=== PATIENT | male | born 1980 | race Hispanic/Latino ===

== ENCOUNTER 2018-11-09 21:10 | Emergency (ER) | payer OTHER ==
[~2018-11-09] VITALS: Ht 167.6 cm; Wt 110.7 kg
[2018-11-09] MEDS ORDERED: LIDOCAINE HCL 1% LOCAL INJ 20 ML VIAL ONE (21:25)
== END 2018-11-09 22:18 | disposition home or self-care (01) ==
LOC: FSED 21:10
DX: S61.412A Laceration without foreign body of left hand, initial encounter (principal); W26.0XXA Contact with knife, initial encounter; Y92.008 Other place in unspecified non-institutional (private) residence as the place of occurrence of the external cause
CPT/HCPCS: 12001; 99283; J2001

== ENCOUNTER 2018-12-05 15:33 | Emergency (ER) | payer OTHER ==
[~2018-12-05] VITALS: Ht 167.6 cm; Wt 112.1 kg
--- OUTSIDE RECORDS SUMMARY | 2018-12-05 15:35 | XMS REPORT ---
Author Author [facility] Address Unknown Phone Unavailable Care Team Providers Care Car Detailer Name Role Phone Unavailable Unavailable Problems This patient has no known problems. Allergies, Adverse Reactions, Alerts This patient has no known allergies or adverse reactions. Medications This patient has no known medications. Encounters Start Date/Time End Date/Time Encounter Type Admission Type Attending [facility] Care Facility Care Department Encounter ID 2018-11-16 03:42:00 2018-11-16 03:42:00 Emergency E [facility]SE [id number]
== END 2018-12-05 16:04 | disposition home or self-care (01) ==
LOC: FSED 15:33
DX: Z48.02 Encounter for removal of sutures (principal); K21.9 Gastro-esophageal reflux disease without esophagitis
CPT/HCPCS: 99282; S0630

== ENCOUNTER 2018-12-24 18:42 | Emergency (ER) | payer OTHER ==
[~2018-12-24] VITALS: Ht 167.6 cm; Wt 112.0 kg
[2018-12-24] MEDS ORDERED: ONDANSETRON HCL INJ 2MG/ML 2ML 2 MG/ML VIAL IV NR (19:15)
[2018-12-24] MEDS ORDERED: SODIUM CHLORIDE 0.9% 1000ML 1,000 ML IV SCH (19:15)
[2018-12-24] MEDS ORDERED: FENTANYL CITRATE/PF 100MCG/2 ML INJ ONE (19:20)
[2018-12-24] MEDS ORDERED: SODIUM CHLORIDE 0.9% 1000ML 1,000 ML ONE (19:20)
[2018-12-24] MEDS ORDERED: ONDANSETRON HCL INJ 2MG/ML 2ML 2 MG/ML VIAL ONE (19:20)
[2018-12-24] MEDS ORDERED: FENTANYL CITRATE/PF 100MCG/2 ML INJ IV NR (19:30)
[2018-12-24] MEDS ORDERED: FENTANYL CITRATE/PF 100MCG/2 ML INJ IV ONE (19:45)
--- NOTE | 2018-12-24 19:50 | Diagnostic Imaging Report ---
EXAM: CT Abdomen and Pelvis WITHOUT contrast INDICATION: Abdominal pain right-sided pain COMPARISON: None. TECHNIQUE: Abdomen and pelvis were scanned utilizing a multidetector helical scanner from the lung base to the pubic symphysis without administration of IV contrast. Absence of intravenous contrast decreases sensitivity for detection of focal lesions and vascular pathology. Coronal and sagittal reformations were obtained. Routine protocol was performed. IV CONTRAST: None ORAL CONTRAST: Water COMPLICATIONS: None RADIATION DOSE: Total DLP: 816.67 mGy*cm Estimated effective dose: (DLP x 0.015 x size factor) mSv CTDIvol has been reviewed. It is below the limits set by the Radiation Protocol Committee (RPC). Dose modulation, iterative reconstruction, and/or weight based adjustment of the mA/kV was utilized to reduce the radiation dose to as low as reasonably achievable. FINDINGS: LINES and TUBES: None. LOWER THORAX: Unremarkable HEPATOBILIARY: Fatty infiltration of the liver with likely focal fatty sparing adjacent to the gallbladder. No biliary ductal dilation. GALLBLADDER: No radio-opaque stones or sludge. No wall thickening. SPLEEN: No splenomegaly. PANCREAS: No focal masses or ductal dilatation. ADRENALS: No adrenal nodules KIDNEYS/URETERS: No hydronephrosis. No cystic or solid mass lesions. No stones. GI TRACT: No abnormal distention, wall thickening, or evidence of bowel obstruction. Scattered diverticulosis without evidence of diverticulitis. Appendix is normal. PELVIC ORGANS/BLADDER: Unremarkable. LYMPH NODES: No lymphadenopathy. VESSELS: Unremarkable. PERITONEUM / RETROPERITONEUM: No free air or fluid. BONES: Unremarkable. SOFT TISSUES: Fat-containing periumbilical hernia. IMPRESSION: 1. Scattered diverticulosis without evidence of diverticulitis. 2. No acute CT abnormality in the abdomen or pelvis on this noncontrast enhanced CT scan. Signed by: Dr. Carlos Steinberg M.D. on 12/24/2018 7:47 PM
[2018-12-24] MEDS ORDERED: ULTRAM50 MG PO (20:04)
[2018-12-24] MEDS ORDERED: COLACE100 MG PO (20:04)
== END 2018-12-24 20:31 | disposition home or self-care (01) ==
LOC: FSED 18:42
DX: R10.31 Right lower quadrant pain (principal); R94.4 Abnormal results of kidney function studies
CPT/HCPCS: 74176; 80053; 81003; 85025; 99284; J2405; J3010; J7030

== ENCOUNTER 2019-08-24 21:10 | Emergency (ER) | payer OTHER ==
[~2019-08-24] VITALS: Ht 167.6 cm; Wt 113.4 kg
[~2019-08-24 21:10] MED LIST: COLACE100 MG PO; ULTRAM50 MG PO
--- NOTE | 2019-08-24 22:56 | Diagnostic Imaging Report ---
FINGER LT - HOPD - 3 views HISTORY: Pain. COMPARISON: None available. FINDINGS: Bones: No acute displaced fracture. Osseous alignment is within normal limits. Joints: The joint spaces are well-maintained. Soft tissues: Soft tissue laceration of the dorsal aspect of the imaged finger. IMPRESSION: No acute radiographic abnormality. Signed by: Herman Rodrigues MD on 08/24/2019 10:53 PM
[2019-08-24 23:08] VITALS: BP 121/88
[2019-08-24] MEDS ORDERED: AMOXICILLIN/CLAVULANATE K 875 MG TAB PO STA (23:08)
[2019-08-24] MEDS ORDERED: CEPHALEXIN500 MG PO (23:11)
[2019-08-24] MEDS ORDERED: TYLENOL WITH C1 EACH PO (23:13)
[2019-08-24] MEDS ORDERED: MOTRIN200 MG PO (23:14)
[2019-08-24] MEDS ORDERED: IBUPROFEN 400 MG TAB PO ONE (23:15)
[2019-08-24] MEDS ORDERED: HYDROCODONE/APAP 5MG-325MG TAB PO ONE (23:15)
[2019-08-24] MEDS ORDERED: IBUPROFEN 200 MG TAB ONE (23:17)
[2019-08-24] MEDS ORDERED: HYDROCODONE/APAP 5MG-325MG TAB ONE (23:17)
[2019-08-24] MEDS ORDERED: AMOXICILLIN/CLAVULANATE K 875 MG TAB ONE (23:21)
== END 2019-08-24 23:28 | disposition home or self-care (01) ==
LOC: FSED 21:10
DX: S61.211A Laceration without foreign body of left index finger without damage to nail, initial encounter (principal); W26.8XXA Contact with other sharp object(s), not elsewhere classified, initial encounter; Y99.0 Civilian activity done for income or pay
CPT/HCPCS: 99283

== ENCOUNTER 2019-09-12 08:11 | Emergency (ER) | payer OTHER ==
[~2019-09-12] VITALS: Ht 152.4 cm; Wt 109.4 kg
[~2019-09-12 08:11] MED LIST changes: +CEPHALEXIN500 MG PO; +MOTRIN200 MG PO; +TYLENOL WITH C1 EACH PO
--- OUTSIDE RECORDS SUMMARY | 2019-09-12 08:14 | XMS REPORT ---
Author Author [facility] t Organization [facility] t Address [address] [place] [address] Phone Unavailable Care Team Providers Care Electrical Installation Supervisor Name Role Phone NO, PCP PCP Unavailable Shanti RESENDIZ Attphys Unavailable Marielos SIDHU Attphys Unavailable Payers Payer Name Policy Type Policy Number Effective Date Expiration Date S valeria [facility] [id number] [facility] [id number] [facility] [id number] 2018 00:00:00 2019 00:0 0:00 [facility] Problems This patient has no known problems. Allergies, Adverse Reactions, Alerts This patient has no known allergies or adverse reactions. Medications Ordered Medication Name Filled Medication Name Start Date Stop Da te Current Medication? Ordering Clinician Indication Dosage Frequency Signature (SIG) Comments Components Source Docusate Sodium (Colace) 100 Mg Cap Docusate Sodium (Colace) 100 Mg Cap 2018-12-24 00:00:00 Yes Taylor Sidhu Md 100 Twice A Day as needed for Constipation [facility] Tramadol Hcl (Ultram) 50 Mg Tablet Tramadol Hcl (Ultram) 50 Mg Tablet 2018-12-24 00:00:00 Yes Taylor Sidhu Md 50 Four Times Daily as needed for Pain [facility] Procedures Procedure Date / Time Performed Performing Clinician Sourc e RPR S/N/AX/GEN/TRNK 2.5CM/< 2018-11-09 00:00:00 KESHA MORALES [facility] Encounters Start Date/Time End Date/Time [email or web address] Department Encounter ID Source 2018-12-24 18:42:00 2018-12-24 20:31:00 Departed Emergency Room [address] [facility] [id number] [facility] 2018-12-15 01:10:00 2018-12-15 01:10:00 Emergency E [facility] [id number] [facility] 2018-12-05 15:33:00 2018-12-05 16:04:[address] [facility] [id number] [facility] 2018-11-16 03:42:00 2018-11-16 03:42:00 Emergency E [facility]SE [id number] [facility]SE 2018-11-09 21:10:00 2018-11-09 22:18:[address] [facility] [id number] [facility] Results Test Description Test Time Test Comments Results Result Comments Source [facility] 2019-08-24 22:52:00 [place] [address] Patient Name: TOMMY CABRERA IV MR #: [id number] : 1980 Age/Sex: 39/M Req #: [id number] Adm Physician: Ordered by: ISAURO RESENDIZ MD Report #: [id number] Location: [facility] Room/Bed: Procedure: [id number] HOPD/FINGER LT - HOPD Exam Date: 08/24/19 Exam Time: 2229 REPORT STATUS: Signed FINGER LT - HOPD - 3 views HISTORY: Pain. COMPARISON: None available. FINDINGS: Bones: No acute displaced fracture. Osseous alignment is within normal limits. Joints: The joint spaces are well-maintained. Soft tissues: Soft tissue laceration of the dorsal aspect of the imaged finger. IMPRESSION: No acute radiographic abnormality. Signed by: Rosemarie Angeles MD on 08/24/2019 10:53 PM Dictated By: ROSEMARIE ANGELES MD 52 Transcribed By: PADMAJA on 08/24/192252 COPY TO: ISAURO RESENDIZ MD CT ABD/PEL WO CONTRAST-HOPD 2018-12-24 19:43:00 [place] [address] Patient Name: TOMMY CABRERA IV MR #: [id number] : 1980 Age/Sex: 38/M Req #: [id number] Adm Physician: Ordered by: TAYLOR SIDHU MD Report #: [id number] Location: [facility] Room/Bed: Procedure: [id number] HOPD/CT ABD/PEL WO CONTRAST-HOPD Exam Date: 12/24/18 Exam Time: 1929 REPORT STATUS: Signed EXAM: CT Abdomen and Pelvis WITHOUT contrast INDICATION: Abdominal pain right-sided pain COMPARISON: None. TECHNIQUE: Abdomen and pelvis were scanned utilizing a multidetector helical scanner from the lung base to the pubic symphysis without administration of IV contrast. Absence of intravenous contrast decreases sensitivity for detection of focal lesions and vascular pathology. Coronal and sagittal reformations were obtained. Routine protocol was performed. IV CONTRAST: None ORAL CONTRAST: Water COMPLICATIONS: None RADIATION DOSE: Total DLP: 816.67 mGy*cm Estimated effective dose: (DLP x 0.015 x size factor) mSv CTDIvol has been reviewed. It is below the limits set by the Radiation Protocol Committee (RPC). Dose modulation, iterative reconstruction, and/or weight based adjustment of the mA/kV was utilized to reduce the radiation dose to as low as reasonably achievable. FINDINGS: LINES and TUBES: None. LOWER THORAX: Unremarkable HEPATOBILIARY: Fatty infiltration of the liver with likely focal fatty sparing adjacent to the gallbladder. No biliary ductal dilation. GALLBLADDER: No radio-opaque stones or sludge. No wall thickening. SPLEEN: No splenomegaly. PANCREAS: No focal masses or ductal dilatation. ADRENALS: No adrenal nodules KIDNEYS/URETERS: No hydronephrosis. No cystic or solid mass lesions. No stones. GI TRACT: No abnormal distention, wall thickening, or evidence of bowel obstruction. Scattered diverticulosis without evidence of diverticulitis. Appendix is normal. PELVIC ORGANS/BLADDER: Unremarkable. LYMPH NODES: No lymphadenopathy. VESSELS: Unremarkable. PERITONEUM / RETROPERITONEUM: No free air or fluid. BONES: Unremarkable. SOFT TISSUES: Fat-containing periumbilical hernia. IMPRESSION: 1. Scattered diverticulosis without evidence of diverticulitis. 2. No acute CT abnormality in the abdomen or pelvis on this noncontrast enhanced CT scan. Signed by: Dr. Inocente Steinberg M.D. on 12/24/2018 7:47 PM Dictated By: INOCENTE STEINBERG MD, MD 46 Transcribed By: PADMAJA on 12/24/181946 COPY TO: TAYLOR SIDHU MD
--- NOTE | 2019-09-12 08:37 | Emergency Department Note ---
History of Present Illnes History of Present Illness Chief Complaint: Suture Removal from left index finger/ itchy whole body rash s/p taking cephalexin History of Present Illness This is a 39 year old male. HAD SUTURES PLACED ON LEFT INDEX FINGER 19 DAYS AGO. just started taking cephalexin as prescribed and 1 day ago broke out over entire body with itchy rash. no signs of infection on wound. 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 Required: No Onset (how long ago): day(s) (1) Location: whole body Quality: itchy rash Radiation: extremity (bue/ble), abdomen Severity: moderate Onset quality: gradual Duration (how long): day(s) (1) Timing of current episode: constant Progression: worsening Context: recent illness, recent surgery, recent immobilization, recent travel, trauma/injury, new medications, hx of DVT/PE, non-compliance w/ medications Relieving factors: none Exacerbating factors: medication Associated symptoms: rash Treatments prior to arrival: none Risk factors: none Past Medical/Family History Physician Review I have reviewed the patient's past medical and family history. Any updates have been documented here. Past Medical History Recent Fever: No Clinical Suspicion of Infectio: No New/Unexplained Change in Ment: No Past Medical History: None Other Medical History: UMBILICAL HERNIA Past Surgical History: Hernia Repair (umbilical) Social History Smoking Cessation: Never Smoker Counseling Performed: No Alcohol Use: None Any Illegal Drug Use: No TB Exposure/Symptoms: No Physically hurt or threatened: No Family History Family history of heart diseas: No Other Last Tetanus: UTD Any Pre-Existing Lines (PICC,: No Is patient up to date on immun: No Review of Systems Review of Systems Constitutional: no symptoms EENTM: no symptoms Cardiovascular: no symptoms Respiratory: no symptoms Genitourinary: no symptoms Musculoskeletal: no symptoms Neurological: no symptoms Psychological: no symptoms Endocrine: no symptoms Review of other systems All other systems reviewed and negative. Physical Exam Related Data Allergies: Coded Allergies: cephalexin (Verified Adverse Reaction, Unknown, hives/rash, 09/11/19) Vital signs reviewed: Yes Physical Exam CONSTITUTIONAL Constitutional: well-developed, well-nourished HENT HENT: normocephalic, atraumatic, oropharynx clear/moist, oropharynx normal, nose normal HENT L/R: left ext ear normal, right ext ear normal EYES Eyes: PERRL, conjunctivae normal, EOM normal NECK Neck: ROM normal, supple PULMONARY Pulmonary: effort normal, breath sounds normal CARDIOVASCULAR Cardiovascular: regular rhythm, heart sounds normal, intact distal pulses, capillary refill normal, normal rate GASTROINTESTINAL Abdominal: soft, nontender, bowel sounds normal GENITOURINARY SKIN Skin: warm, dry, rash (generalize body hives), other (4 sutures intact left index finger. + wound healed) MUSCULOSKELETAL Musculoskeletal: ROM normal NEUROLOGICAL Neurological: alert, oriented x 3, no gross motor or sensory deficits PSYCHOLOGICAL Psychological: mood/affect normal, judgement normal Procedures Procedures Procedure: 4 sutures removed from left index finger without complications Critical Care Time Subsequent provider I assumed direction of critical care for this patient from another provider of my specialty. Assessment & Plan Assessment & Plan Problems: (1) Encounter for removal of sutures (2) Hives Assessment & Plan rx benadryl, pepcid and prednisone Depart Disposition: HOME, SELF-assisted Meds Active Scripts Prednisone (PREDNISONE) 20 Mg Tab, 60 MG PO DAILY for 4 Days, #12 TAB take all 3 pills at once. START TOMORROW Prov:ISIDRO DOWLING 09/12/19 Famotidine (PEPCID) 20 Mg Tablet, 20 MG PO Q12H for 10 Days, #20 TAB Prov:ISIDRO DOWLING 09/12/19 Diphenhydramine Hcl (BENADRYL) 25 Mg Capsule, 50 MG PO Q6H PRN for ITCHING for 5 Days, #40 TAB Prov:ISIDRO DOWLING 09/12/19 Ibuprofen (MOTRIN) 200 Mg Tab, 800 MG PO Q8H for pain, #30 TAB 0 Refills Prov:ISAURO RESENDIZ MD 08/24/19 Acetaminophen With Codeine (TYLENOL WITH CODEINE #3 TABLET) 1 Each Tablet, 1-2 TAB PO Q6H PRN for pain, #20 TAB 0 Refills Do NOT take and drive, drink alcohol, or operate machinery Prov:ISAURO RESENDIZ MD 08/24/19 Cephalexin (CEPHALEXIN) 500 Mg Capsule, 500 MG PO TID for infection for 10 Days, #30 CAP 0 Refills Take ALL antibiotics Prov:ISAURO RESENDIZ MD 08/24/19 Docusate Sodium (COLACE) 100 Mg Cap, 100 MG PO BID PRN for constipation for 10 Days, #30 CAP Prov:TAYLOR CUEVAS MD 12/24/18 Tramadol Hcl (ULTRAM) 50 Mg Tablet, 50 MG PO QID PRN for pain for 5 Days, #20 TAB Prov:TAYLOR CUEVAS MD 12/24/18 Medications in the ED Prednisone 80 mg STK-MED ONCE .ROUTE ; Start 09/12/19 at 08:40; Stop 09/12/19 at 08:35; Status DC Famotidine 20 mg STK-MED ONCE .ROUTE ; Start 09/12/19 at 08:41; Stop 09/12/19 at 08:35; Status DC Bacitracin Zinc 1 ea STK-MED ONCE TP ; Start 09/12/19 at 08:41; Stop 09/12/19 at 08:36; Status DC ISIDRO DOWLING September 12, 2019 08:37
[2019-09-12] MEDS ORDERED: PREDNISONE 20 MG TAB ONE (08:40)
[2019-09-12] MEDS ORDERED: FAMOTIDINE 20 MG TAB ONE (08:41)
[2019-09-12] MEDS ORDERED: BACITRACIN ZINC 0.9GM TP ONE ×2 (08:41→09:00)
[2019-09-12] MEDS ORDERED: PEPCID20 MG PO (08:42)
[2019-09-12] MEDS ORDERED: PREDNISONE20 MG PO (08:42)
[2019-09-12] MEDS ORDERED: BENADRYL25 M1 PO (08:42)
[2019-09-12] MEDS ORDERED: PREDNISONE 20 MG TAB PO ONE (08:45)
[2019-09-12] MEDS ORDERED: FAMOTIDINE 20 MG TAB PO ONE (08:45)
== END 2019-09-12 09:03 | disposition home or self-care (01) ==
LOC: FSED 08:11
DX: Z48.02 Encounter for removal of sutures (principal); L50.0 Allergic urticaria; T36.1X5A Adverse effect of cephalosporins and other beta-lactam antibiotics, initial encounter
CPT/HCPCS: 99283; S0630

== ENCOUNTER 2019-11-30 19:19 | Emergency (ER) | payer SELFPAY ==
[~2019-11-30] VITALS: Ht 167.6 cm; Wt 109.8 kg
[~2019-11-30 19:19] MED LIST changes: +BENADRYL25 M1 PO; +PEPCID20 MG PO; +PREDNISONE20 MG PO
--- OUTSIDE RECORDS SUMMARY | 2019-11-30 20:42 | XMS REPORT | Continuity of Care Document ---
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 Name Role Phone NO, PCP PCP Unavailable Shanti RESENDIZ Attphys Unavailable ZEBALLOSMarielos Attphys Unavailable Payers Payer Name Policy Type Policy Number Effective Date Expiration Date Tete shaw Cigna Hmo NA 2019 00:00:00 2020 00:00 :00 [facility] Cigna Ppo [id number] 2018 00:00:00 2019 00:0 0:00 [facility] Problems Condition Name Condition Details Condition Category Status Onset Date Resolution Date Last Treatment Date Treating Clinician Comments Source Problem Condition Active [facility] Allergies, Adverse Reactions, Alerts Allergy Name Allergy Type Status Severity Reaction(s) Onset Date Inacti ve Date Treating Clinician Comments Source Cephalexin Propensity to adverse reactions Active hive s/rash 2019-09-11 00:00:00 [facility] Social History Social Habit Start Date Stop Date Quantity Comments Source Sex Ass[birth year] At 1980 00:00:00 1980 00:00:00 Male [facility] Medications Ordered Medication Name Filled Medication Name Start Date Stop Da te Current Medication? Ordering Clinician Indication Dosage Frequency Signature (SIG) Comments Components Source Diphenhydramine Hcl (Benadryl) 25 Mg CAPSULE Diphenhyd ramine Hcl (Benadryl) 25 Mg CAPSULE 2019-09-12 08:42:00 Yes 50 E very 6 Hours as needed for Itching [facility] Famotidine (Pepcid) 20 Mg TABLET Famotidine (Pepcid) 20 Mg T ABLET 2019-09-12 08:42:00 Yes 20 Every 12 Hours [facility] Prednisone Prednisone 2019-09-12 08:42:00 Yes 60 Cristina ly [facility] Ibuprofen (Motrin) 200 Mg TAB Ibuprofen (Motrin) 200 Mg TAB 2019 23:14:00 Yes 800 Every 8 Hours for Pain [facility] Acetaminophen With Codeine (Tylenol With Codeine #3 Ta blet) 1 Each TABLET Acetaminophen With Codeine (Tylenol With Codeine #3 Tablet) 1 Each TABLET 2019-08-24 23:13:00 Yes Every 6 Hours as n eeded for Pain [facility] Cephalexin Cephalexin 2019-08-24 23:11:00 Yes 500 Three Times A Day for Infection [facility] Docusate Sodium (Colace) 100 Mg CAP Docusate Sodium (Colace) 100 Mg CAP 2018-12-24 20:04:00 Yes 100 Twice A Day as nee ded for Constipation [facility] Tramadol Hcl (Ultram) 50 Mg TABLET Tramadol Hcl (Ultram) 50 Mg TABLET 2018-12-24 20:04:00 Yes 50 Four Times Daily as needed fo r Pain [facility] Vital Signs Vital Name Observation Time Observation Value Comments Source Weight 2019-09-12 08:20:00 241.25 [lb_av] [facility] BMI (Body Mass Index) 2019-09-12 08:20:00 47.1 kg/m2 [facility] Body Temperature 2019-08-24 23:08:00 98.7 [degF] [facility] Procedures Procedure Date / Time Performed Performing Clinician Sourc e RPR S/N/AX/GEN/TRNK 2.5CM/< 2019-08-24 00:00:00 [facility] Plan of Care Planned Activity Planned Date Details Comments Source Instructions Allergic Reaction [facility] Encounters Start Date/Time End Date/Time Encounter Type Admission Type Attendi [facility] Facility Care Department Encounter ID Source 2019-09-12 08:11:00 2019-09-12 09:03:00 Departed Emergency Room [facility] [id number] [facility] Patients [facility] 2019-08-24 21:10:00 2019-08-24 23:28:00 Departed Emergency Room 1 ISAURO RESENDIZ [facility] [id number] [facility] 2018-12-24 18:42:00 2018-12-24 20:31:00 Departed Emergency Room 1 TAYLOR CUEVAS [facility] [id number] [facility] 2018-12-15 01:10:00 2018-12-15 01:10:00 Emergency E [facility]SE [facility]SE [id number] [facility] 2018-12-05 15:33:00 2018-12-05 16:04:00 Departed Emergency Room [facility] [id number] [facility] 2018-11-16 03:42:00 2018-11-16 03:42:00 Emergency E MHSE [facility]SE 7507 [facility] 2018-11-09 21:10:00 2018-11-09 22:18:00 Departed Emergency Room [facility] [id number] [facility] Results Test Description Test Time Test Comments Results Result Comments Source FINGER [facility] 2019-08-24 22:52:00 [place] [address] Patient Name: TOMMY CABRERA IV MR #: [id number] : 1980 Age/Sex: 39/M Req #: [id number] Adm Physician: Ordered by: ISAURO RESENDIZ MD Report #: [id number] Location: [facility] Room/Bed: Procedure: [id number] HOPD/FINGER LT - HOPD Exam Date: 08/24/19 Exam Time: 2229 REPORT STATUS: Signed FINGER LT - HOPD - 3 views HISTORY: Pain. COMPARISON: None available. FINDINGS: Bones: No acute displaced fracture. Osseous alignment is within normal limits. Joints: The joint spaces are well-maintained. Soft tissues: Soft tissue laceration of the dorsal aspect of the imaged finger. IMPRESSION: No acute radiographic abnormality. Signed by: Herman Angeles MD on 08/24/2019 10:53 PM Dictated By: HERMAN ANGELES MD 52 Transcribed By: PADMAJA on 08/24/192252 COPY TO: ISAURO RESENDIZ MD CT ABD/PEL WO CONTRAST-HOPD 2018-12-24 19:43:00 [place] [address] Patient Name: TOMMY CABRERA IV MR #: [id number] : 1980 Age/Sex: 38/M Req #: [id number] Adm Physician: Ordered by: TAYLOR CUEVAS MD Report #: [id number] Location: [facility] Room/Bed: Procedure: [id number] HOPD/CT ABD/PEL WO CONTRAST-HOPD Exam Date: 12/24/18 [...] noncontrast enhanced CT scan. Signed by: Dr. Carlos Steinberg M.D. on 12/24/2018 7:47 PM Dictated By: CARLOS STEINBERG MD, MD 46 Transcribed By: PADMAJA on 12/24/181946 COPY TO: TAYLOR CUEVAS MD
[2019-11-30] MEDS ORDERED: BACITRACIN ZINC 15 GM OINT TOP ONE (21:30)
[2019-11-30] MEDS ORDERED: BACTRIM DS TAB1 EACH PO (21:31)
[2019-11-30] MEDS ORDERED: MOTRIN800 MG PO (21:31)
--- NOTE | 2019-11-30 21:31 | Emergency Department Note ---
History of Present Illnes History of Present Illness Chief Complaint: Laceration left ring s/p jabbing it on a boat History of Present Illness This is a 39 year old male . Historian: Patient Arrival Mode: Car History limited by: condition of the patient [employer] Required: No Onset (how long ago): hour(s) (4) Location: left ring finger Quality: sharp Radiation: Reports non-radiation Severity: moderate Onset quality: sudden Duration (how long): hour(s) (4) Progression: unchanged Chronicity: new Context: Reports trauma/injury; Denies recent illness, Denies recent surgery, Denies recent immobilization, Denies recent travel, Denies new medications, Denies hx of DVT/PE, Denies non- compliance w/ medications Relieving factors: none, movement Exacerbating factors: movement Associated symptoms: Reports denies other symptoms Treatments prior to arrival: none Past Medical/Family History Physician Review I have reviewed the patient's past medical and family history. Any updates have been documented here. Past Medical History Recent Fever: No Clinical Suspicion of Infectio: No New/Unexplained Change in Ment: No Past Medical History: None Other Medical History: UMBILICAL HERNIA Past Surgical History: None Social History Smoking Cessation: Current some day smoker Alcohol Use: None Any Illegal Drug Use: No Physically hurt or threatened: No Other Last Tetanus: UTD Any Pre-Existing Lines (PICC,: No Review of Systems Review of Systems Constitutional: Reports no symptoms EENTM: Reports no symptoms Cardiovascular: Reports no symptoms Respiratory: Reports no symptoms Gastrointestinal: Reports no symptoms Genitourinary: Reports no symptoms Musculoskeletal: Reports no symptoms Integumentary: Reports as per HPI Neurological: Reports no symptoms Psychological: Reports no symptoms Endocrine: Reports no symptoms Hematological/Lymphatic: Reports no symptoms Review of other systems: All other systems negative Physical Exam Related Data Allergies: Coded Allergies: cephalexin (Verified Adverse Reaction, Unknown, hives/rash, 09/11/19) Triage Vital Signs Vital Signs Date Time Temp Pulse Resp B/P (MAP) Pulse Ox O2 Delivery O2 Flow Rate FiO2 11/30/19 19:49 99.5 130 18 126/69 100 Room Air Vital signs reviewed: Yes Physical Exam CONSTITUTIONAL Constitutional: Present well-developed, Present well-nourished HENT HENT: Present normocephalic, Present atraumatic, Present oropharynx clear/moist, Present nose normal HENT L/R: Present left ext ear normal, Present right ext ear normal EYES Eyes: Reports PERRL, Reports conjunctivae normal NECK Neck: Present ROM normal PULMONARY Pulmonary: Present effort normal, Present breath sounds normal CARDIOVASCULAR Cardiovascular: Present regular rhythm, Present heart sounds normal, Present capillary refill normal, Present normal rate GASTROINTESTINAL Abdominal: Present soft, Present nontender, Present bowel sounds normal GENITOURINARY Genitourinary: Present exam deferred SKIN Skin: Present warm, Present other (4cm laceration posterior left ring finger/ +farom) MUSCULOSKELETAL Musculoskeletal: Present ROM normal NEUROLOGICAL Neurological: Present alert, Present oriented x 3, Present no gross motor or sensory deficits PSYCHOLOGICAL Psychological: Present mood/affect normal, Present judgement normal Procedures Laceration Laceration: Laceration 1 Site: hand (posterior left ring finger) Size (cm): 4 Description: linear Depth: simple, single layer Local anesthesia: lidocaine 1% Amount of anesthesia (mL): 3 Pre-repair: wound exposed, irrigated extensively Skin layer closed with: nylon Size (cm): 5-0 Number of sutures: 6 Technique: simple, interrupted Additional comments no complications Assessment & Plan Medical Decision Making MDM see below Assessment & Plan Final Impression: (1) Finger laceration Depart Disposition: HOME, SELF-CARE Last Vital Signs Date Time Temp Pulse Resp B/P (MAP) Pulse Ox O2 Delivery O2 Flow Rate FiO2 11/30/19 19:49 99.5 130 18 126/69 100 Room Air Home Meds Active Scripts Ibuprofen (MOTRIN) 800 Mg Tab, 800 MG PO Q6H PRN for MODERATE PAIN (4-6), #21 TAB Prov:ISIDRO DOWLING 11/30/19 Sulfamethoxazole/Trimethoprim (BACTRIM DS TABLET) 1 Each Tablet, 1 TAB PO Q12H for 10 Days, #20 TAB Prov:ISIDRO DOWLING 11/30/19 Prednisone (PREDNISONE) 20 Mg Tab, 60 MG PO DAILY for 4 Days, #12 TAB take all 3 pills at once. START TOMORROW Prov:ISIDRO DOWLING 09/12/19 Famotidine (PEPCID) 20 Mg Tablet, 20 MG PO Q12H for 10 Days, #20 TAB Prov:ISIDRO DOWLING 09/12/19 Diphenhydramine Hcl (BENADRYL) 25 Mg Capsule, 50 MG PO Q6H PRN for ITCHING for 5 Days, #40 TAB Prov:ISIDRO DOWLING 09/12/19 Ibuprofen (MOTRIN) 200 Mg Tab, 800 MG PO Q8H for pain, #30 TAB 0 Refills Prov:ISAURO RESENDIZ MD 08/24/19 Acetaminophen With Codeine (TYLENOL WITH CODEINE #3 TABLET) 1 Each Tablet, 1-2 TAB PO Q6H PRN for pain, #20 TAB 0 Refills Do NOT take and drive, drink alcohol, or operate machinery Prov:ISAURO RESENDIZ MD 08/24/19 Cephalexin (CEPHALEXIN) 500 Mg Capsule, 500 MG PO TID for infection for 10 Days, #30 CAP 0 Refills Take ALL antibiotics Prov:ISAURO RESENDIZ MD 08/24/19 Docusate Sodium (COLACE) 100 Mg Cap, 100 MG PO BID PRN for constipation for 10 Days, #30 CAP Prov:TAYLOR CUEVAS MD 12/24/18 Tramadol Hcl (ULTRAM) 50 Mg Tablet, 50 MG PO QID PRN for pain for 5 Days, #20 TAB Prov:TAYLOR CUEVAS MD 12/24/18 Medications in the ED Bacitracin Zinc 1 gm ONCE TOP ; Start 11/30/19 at 21:30; Stop 12/07/19 at 21:29; Status UNV ISIDRO DOWLING Nov 30, 2019 21:31
[2019-11-30] MEDS ORDERED: BACITRACIN ZINC 0.9GM TP ONE (21:38)
[2019-11-30 21:39] VITALS: BP 124/67
== END 2019-11-30 21:39 | disposition home or self-care (01) ==
LOC: FSED 19:49
DX: S61.215A Laceration without foreign body of left ring finger without damage to nail, initial encounter (principal); W26.9XXA Contact with unspecified sharp object(s), initial encounter; Y93.19 Activity, other involving water and watercraft; F17.210 Nicotine dependence, cigarettes, uncomplicated
CPT/HCPCS: 99283

== ENCOUNTER 2020-04-26 20:01 | Emergency (ER) | payer SELFPAY ==
[~2020-04-26] VITALS: Ht 167.6 cm; Wt 104.3 kg
[~2020-04-26 20:01] MED LIST changes: +BACTRIM DS TAB1 EACH PO; +MOTRIN800 MG PO
[2020-04-26] MEDS ORDERED: KETOROLAC TROMETHAMINE 30 MG/ML VIAL IV STA (20:17)
[2020-04-26] MEDS ORDERED: ONDANSETRON HCL INJ 2MG/ML 2ML 2 MG/ML VIAL IV ONE (20:30)
[2020-04-26] MEDS ORDERED: SODIUM CHLORIDE 0.9% 1000ML 1,000 ML IV SCH (20:30)
[2020-04-26] MEDS ORDERED: KETOROLAC TROMETHAMINE 30 MG/ML VIAL ONE (20:41)
[2020-04-26] MEDS ORDERED: SODIUM CHLORIDE 0.9% 1000ML 1,000 ML ONE (20:41)
[2020-04-26 22:15] VITALS: BP 140/74
[2020-04-26] MEDS ORDERED: LEVOFLOXACIN250 MG PO (22:15)
[2020-04-26] MEDS ORDERED: FLAGYL500 MG PO (22:15)
== END 2020-04-26 22:15 | disposition home or self-care (01) ==
LOC: FSED 20:07 → MERGE 20:07 → FSED 22:15
DX: R10.9 Unspecified abdominal pain (principal); Z88.1 Allergy status to other antibiotic agents; Z98.890 Other specified postprocedural states
CPT/HCPCS: 74176; 80053; 81003; 85025; 87040; 87071; 87205; 96374; 96376; 99284; J1885; J2405; J7030; 80048

== ENCOUNTER 2020-07-14 21:57 | Emergency (ER) | payer SELFPAY ==
[~2020-07-14] VITALS: Ht 167.6 cm; Wt 111.1 kg
[~2020-07-14 21:57] MED LIST changes: +FLAGYL500 MG PO; +LEVOFLOXACIN250 MG PO
[2020-07-14] MEDS ORDERED: PROVENTIL HFA6.7 GM INH (22:40)
[2020-07-14] MEDS ORDERED: AZITHROMYCIN250 MG PO (22:40)
[2020-07-14] MEDS ORDERED: ZYRTEC10 M3 PO (22:40)
[2020-07-14] MEDS ORDERED: PREDNISONE20 MG PO (22:40)
== END 2020-07-14 22:35 | disposition home or self-care (01) ==
LOC: FSED 22:30
DX: R05 Cough (principal); J40 Bronchitis, not specified as acute or chronic; J30.9 Allergic rhinitis, unspecified; E66.9 Obesity, unspecified
CPT/HCPCS: 99282

== ENCOUNTER 2021-07-04 17:59 | Inpatient (IN) | payer SELFPAY ==
[~2021-07-04] VITALS: Ht 167.6 cm; Wt 116.1 kg
[~2021-07-04 17:59] MED LIST changes: +AZITHROMYCIN250 MG PO; +PROVENTIL HFA6.7 GM INH; +ZYRTEC10 M3 PO
[2021-07-04] MEDS ORDERED: SODIUM CHLORIDE 0.9% 1000ML 1,000 ML IV SCH (18:45)
[2021-07-04] MEDS ORDERED: FAMOTIDINE 20 MG/2 ML VIAL IV NR (18:45)
[2021-07-04] MEDS ORDERED: SODIUM CHLORIDE 0.9% 50ML 50 ML ONE (20:08)
[2021-07-04] MEDS ORDERED: IOPAMIDOL 370 MG/ML 200 ML INFUS..BTL INJ ONE (20:09)
[2021-07-04] MEDS ORDERED: KETOROLAC TROMETHAMINE 30 MG/ML VIAL IV STA (20:34)
[2021-07-04] MEDS ORDERED: FAMOTIDINE 20 MG/2 ML VIAL IV ONE (21:00)
[2021-07-04] MEDS ORDERED: KETOROLAC TROMETHAMINE 30 MG/ML VIAL ONE (21:00)
[2021-07-04] MEDS ORDERED: SODIUM CHLORIDE 0.9% 1000ML 1,000 ML ONE (21:00)
[2021-07-04] MEDS ORDERED: SODIUM CHLORIDE FLUSH 10 ML SYR INJ PRN (22:00)
[2021-07-04] MEDS: CEFTRIAXONE 2 GM in SODIUM CHLORIDE 0.9% 100 ML IV SCH (22:17)
[2021-07-04] MEDS ORDERED: SODIUM CHLORIDE 0.9% 250ML 250 ML ONE (22:26)
[2021-07-04] MEDS ORDERED: CEFTRIAXONE 1 GM VIAL ONE (22:26)
[2021-07-04] MEDS ORDERED: ACETAMINOPHEN 325 MG TAB PO ONE (22:30)
[2021-07-05] VITALS (9 sets, daily range): BP systolic 117–124; BP diastolic 66–98
[2021-07-05] MEDS: ZOLPIDEM TARTRATE 10 MG TAB PO PRN ×2 (00:45→22:20)
[2021-07-05] MEDS: GUAIFENESIN 200 MG/10 ML UDC PO PRN ×3 (00:45→08:56)
[2021-07-05] MEDS: ACETAMINOPHEN 325 MG TAB PO PRN (05:42)
[2021-07-05 07:08] LABS: BASOPHILS # (AUTO) 0.1 (0.0-0.1); BASOPHILS % 0.4 % (0.0-1.0); EOSINOPHILS # (AUTO) 0.2 (0.0-0.4); EOSINOPHILS % 1.1 % (0.0-6.0); HEMATOCRIT 45.2 % (38.2-49.6); HEMOGLOBIN 14.9 g/dL (14.0-18.0); LYMPHOCYTES # (AUTO) 3.2 (1.0-3.2); LYMPHOCYTES % 16.6 % (18.0-39.1); MEAN CORPUSCULAR HEMOGLOBIN 29.4 pg (28-32); MEAN CORPUSCULAR VOLUME 89.2 fL (81-99); MONOCYTES # (AUTO) 1.5 (0.2-0.8); MONOCYTES % 7.5 % (4.4-11.3); NEUTROPHILS # (AUTO) 14.2 (2.1-6.9); NEUTROPHILS % 73.9 % (38.7-80.0); PLATELET COUNT 242 x10e3/uL (140-360); RED BLOOD COUNT 5.07 x10e6/uL (4.3-5.7); RED CELL DISTRIBUTION WIDTH 12.8 % (11.7-14.4)
[2021-07-05 07:34] LABS: ANION GAP 13.1 mmol/L (8-16); CALCIUM 9.7 mg/dL (8.4-10.2); CREATININE, SERUM 0.81 mg/dL (0.72-1.25); POTASSIUM 4.1 mmol/L (3.5-5.1)
[2021-07-05] MEDS: Morphine 4mg Syringe 4 MG/ML INJ IV PRN ×3 (08:56→22:20)
[2021-07-05] MEDS: BENZONATATE 100 MG CAP PO PRN (18:36)
[2021-07-05] MEDS: KETOROLAC TROMETHAMINE 30 MG/ML VIAL IV PRN (18:36)
[2021-07-05] MEDS ORDERED: CEFTRIAXONE 1 GM VIAL ONE (20:37)
[2021-07-05] MEDS: CEFTRIAXONE 2 GM in SODIUM CHLORIDE 0.9% 100 ML IV SCH (20:54)
[2021-07-05] MEDS ORDERED: SODIUM CHLORIDE 0.9% 250ML 250 ML ONE (22:14)
[2021-07-06] VITALS (9 sets, daily range): BP systolic 94–137; BP diastolic 54–81
[2021-07-06 06:09] LABS: BASOPHILS # (AUTO) 0.1 (0.0-0.1); BASOPHILS % 0.3 % (0.0-1.0); EOSINOPHILS # (AUTO) 0.2 (0.0-0.4); EOSINOPHILS % 1.2 % (0.0-6.0); HEMATOCRIT 41.1 % (38.2-49.6); HEMOGLOBIN 13.5 g/dL (14.0-18.0); LYMPHOCYTES % 15.8 % (18.0-39.1); MEAN CORPUSCULAR HEMOGLOBIN 29.8 pg (28-32); MEAN CORPUSCULAR HGB CONC 32.8 g/dL (31-35); MEAN CORPUSCULAR VOLUME 90.7 fL (81-99); MONOCYTES # (AUTO) 1.4 (0.2-0.8); MONOCYTES % 7.3 % (4.4-11.3); NEUTROPHILS # (AUTO) 14.1 (2.1-6.9); PLATELET COUNT 217 x10e3/uL (140-360); RED BLOOD COUNT 4.53 x10e6/uL (4.3-5.7); RED CELL DISTRIBUTION WIDTH 12.6 % (11.7-14.4)
[2021-07-06] MEDS: BENZONATATE 100 MG CAP PO PRN ×2 (06:51→17:34)
[2021-07-06] MEDS: GUAIFENESIN 200 MG/10 ML UDC PO PRN (06:51)
[2021-07-06] MEDS ORDERED: GADOBENATE DIMEGLUMINE 1 ML IV ONE (08:37)
[2021-07-06] MEDS ORDERED: SODIUM CHLORIDE 0.9% 50ML 50 ML ONE (08:37)
[2021-07-06] MEDS: KETOROLAC TROMETHAMINE 30 MG/ML VIAL IV PRN (10:05)
[2021-07-06] MEDS: GUAIFENESIN/CODEINE 5 ML LIQD PO PRN ×3 (10:06→20:00)
[2021-07-06] MEDS: Morphine 4mg Syringe 4 MG/ML INJ IV PRN ×3 (13:21→21:40)
[2021-07-06] MEDS: ACETAMINOPHEN 325 MG TAB PO PRN (20:00)
[2021-07-06] MEDS: AZITHROMYCIN 250 MG TAB PO SCH (21:40)
[2021-07-06] MEDS: CEFTRIAXONE 2 GM in SODIUM CHLORIDE 0.9% 100 ML IV SCH (21:40)
[2021-07-06] MEDS: ZOLPIDEM TARTRATE 10 MG TAB PO PRN (21:43)
[2021-07-07] VITALS (10 sets, daily range): BP systolic 106–125; BP diastolic 68–81
[2021-07-07] MEDS: Morphine 4mg Syringe 4 MG/ML INJ IV PRN ×2 (02:30→20:50)
[2021-07-07] MEDS: KETOROLAC TROMETHAMINE 30 MG/ML VIAL IV PRN ×3 (04:31→19:00)
[2021-07-07 06:29] LABS: HIV 1&2 AB SCREEN NON-REACTIVE (NONREACTIVE)
[2021-07-07 08:54] LABS: BASOPHILS # (AUTO) 0.1 (0.0-0.1); BASOPHILS % 0.4 % (0.0-1.0); EOSINOPHILS # (AUTO) 0.2 (0.0-0.4); EOSINOPHILS % 1.1 % (0.0-6.0); HEMATOCRIT 42.7 % (38.2-49.6); HEMOGLOBIN 13.7 g/dL (14.0-18.0); LYMPHOCYTES # (AUTO) 2.8 (1.0-3.2); LYMPHOCYTES % 15.2 % (18.0-39.1); MEAN CORPUSCULAR HEMOGLOBIN 29.5 pg (28-32); MEAN CORPUSCULAR HGB CONC 32.1 g/dL (31-35); MONOCYTES # (AUTO) 1.4 (0.2-0.8); MONOCYTES % 7.2 % (4.4-11.3); NEUTROPHILS # (AUTO) 14.1 (2.1-6.9); NEUTROPHILS % 75.7 % (38.7-80.0); PLATELET COUNT 237 x10e3/uL (140-360); RED BLOOD COUNT 4.64 x10e6/uL (4.3-5.7); RED CELL DISTRIBUTION WIDTH 12.8 % (11.7-14.4)
[2021-07-07 09:17] LABS: ALBUMIN 3.5 g/dL (3.5-5.0); ALBUMIN/GLOBULIN RATIO 0.8 (0.8-2.0); ANION GAP 12.4 mmol/L (8-16); CALCIUM 9.7 mg/dL (8.4-10.2); CREATININE, SERUM 0.74 mg/dL (0.72-1.25); POTASSIUM 4.4 mmol/L (3.5-5.1)
[2021-07-07] MEDS ORDERED: MIDAZOLAM HCL 2 MG/2 ML VIAL ONE (13:08)
[2021-07-07] MEDS ORDERED: FENTANYL CITRATE/PF 100MCG/2 ML INJ ONE ×2 (13:08→16:50)
[2021-07-07] MEDS ORDERED: ONDANSETRON HCL INJ 2MG/ML 2ML 2 MG/ML VIAL ONE (13:12)
[2021-07-07] MEDS ORDERED: SUCCINYLCHOLINE CHLORIDE 20 MG/ML 10ML VIAL ONE (13:12)
[2021-07-07] MEDS ORDERED: DEXAMETHASONE SOD PHOS INJ 4 MG/ML SDV ONE (13:12)
[2021-07-07] MEDS ORDERED: POVIDONE IODINE 0.05% 0.05 % ML PO ONE (13:12)
[2021-07-07] MEDS ORDERED: ROCURONIUM BROMIDE 10 MG/ML 5ML VIAL IV ONE (13:12)
[2021-07-07] MEDS ORDERED: LIDOCAINE HCL 2% LOCAL INJ 5 ML SDV VIAL INJ ONE (13:12)
[2021-07-07] MEDS ORDERED: SEVOFLURANE INHAL SOLN 250 ML PEN BTL ONE (13:12)
[2021-07-07] MEDS ORDERED: PROPOFOL IV EMULSION 10 MG/ML 20 ML VIAL ONE (13:12)
[2021-07-07] MEDS ORDERED: LIDOCAINE HCL 4% 50 ML BTL ONE (14:04)
[2021-07-07] MEDS ORDERED: LIDOCAINE HCL 2% JELLY 5 ML TUBE ONE (14:04)
[2021-07-07] MEDS ORDERED: GUAIFENESIN/CODEINE 5 ML LIQD PO PRN (16:15)
[2021-07-07] MEDS ORDERED: MEPERIDINE HCL INJ 25 MG/ML VIAL ONE (16:24)
[2021-07-07] MEDS ORDERED: METHYLPREDNISOLONE SOD SUCC 40 MG/ML VIAL 1ML ONE (16:54)
[2021-07-07] MEDS ORDERED: METHYLPREDNISOLONE SOD SUCC 125 MG/2ML VIAL IV ONE (17:15)
[2021-07-07] MEDS: AZITHROMYCIN 250 MG TAB PO SCH ×2 (20:50→21:04)
[2021-07-07] MEDS: CEFTRIAXONE 2 GM in SODIUM CHLORIDE 0.9% 100 ML IV SCH ×2 (20:50→21:04)
[2021-07-07] MEDS: ZOLPIDEM TARTRATE 10 MG TAB PO PRN (22:05)
[2021-07-08] VITALS: BP 108/77
[2021-07-08] MEDS: KETOROLAC TROMETHAMINE 30 MG/ML VIAL IV PRN (02:14)
[2021-07-08 04:00] VITALS: BP 112/66
[2021-07-08 06:56] LABS: BASOPHILS # (AUTO) 0.1 (0.0-0.1); BASOPHILS % 0.2 % (0.0-1.0); HEMOGLOBIN 13.5 g/dL (14.0-18.0); LYMPHOCYTES # (AUTO) 1.5 (1.0-3.2); LYMPHOCYTES % 7.2 % (18.0-39.1); MEAN CORPUSCULAR HEMOGLOBIN 29.3 pg (28-32); MEAN CORPUSCULAR HGB CONC 32.1 g/dL (31-35); MEAN CORPUSCULAR VOLUME 91.3 fL (81-99); MONOCYTES % 4.5 % (4.4-11.3); NEUTROPHILS # (AUTO) 18.6 (2.1-6.9); NEUTROPHILS % 87.3 % (38.7-80.0); PLATELET COUNT 289 x10e3/uL (140-360); RED CELL DISTRIBUTION WIDTH 12.1 % (11.7-14.4)
[2021-07-08 07:20] LABS: ALBUMIN 3.4 g/dL (3.5-5.0); ALBUMIN/GLOBULIN RATIO 0.7 (0.8-2.0); ANION GAP 13.4 mmol/L (8-16); CREATININE, SERUM 0.77 mg/dL (0.72-1.25); POTASSIUM 4.4 mmol/L (3.5-5.1)
[2021-07-08 07:50] VITALS: BP 115/72
[2021-07-08 08:00] VITALS: BP 115/72
[2021-07-08] MEDS ORDERED: PANTOPRAZOLE SOD 40 MG TABEC PO ONE (08:15)
[2021-07-08] MEDS ORDERED: tessalon perles PO (11:12)
[2021-07-08] MEDS ORDERED: AUGMENTIN 500-1 EACH PO (11:13)
[2021-07-08] MEDS ORDERED: ACETAMINOPHEN-1 EAC4 PO (11:14)
[2021-07-08] MEDS ORDERED: PROMETHAZINE-C473 ML PO (11:16)
[2021-07-09] MEDS ORDERED: PANTOPRAZOLE SOD 40 MG TABEC PO SCH (07:30)
== END 2021-07-08 11:58 | disposition home or self-care (01) | DRG 167 ==
LOC: FSED 18:24 → MERGE 21:46 → ERHOLD 21:46 → MED/SURG2 23:46
PROVIDERS: ADMIT Internal Medicine; ATTEND Internal Medicine
PROC: 0BBG8ZX Excision of Left Upper Lung Lobe, Via Natural or Artificial Opening Endoscopic, Diagnostic (ICD-10-PCS; 2021-07-07)
PROC: 0BDJ8ZX Extraction of Left Lower Lung Lobe, Via Natural or Artificial Opening Endoscopic, Diagnostic (ICD-10-PCS; principal; 2021-07-07 15:23)
DX: R91.1 Solitary pulmonary nodule (principal); Z68.41 Body mass index [BMI] 40.0-44.9, adult; J18.8 Other pneumonia, unspecified organism; K86.9 Disease of pancreas, unspecified; K76.0 Fatty (change of) liver, not elsewhere classified; E66.01 Morbid (severe) obesity due to excess calories; K43.9 Ventral hernia without obstruction or gangrene; Z20.822 Contact with and (suspected) exposure to COVID-19
CPT/HCPCS: 31622; 36415; 70450; 71045; 71250; 74177; 74183; 76870; 80048; 80053; 81003; 82553; 83605; 83735; 85025; 85379; 86301; 87040; 87102; 87116; 87205; 87206; 87335; 87390; 87536; 88112; 88300; 88305; 88312; 88342; 93005; 93976; 94799; 99284; G0433; G0435; J0330; J0456; J0696; J1100; J1885; J2001; J2175; J2250; J2270; J2405; J2920; J3010; J7030; J7050; Q9967; U0002

== ENCOUNTER 2021-11-08 00:56 | Emergency (ER) | payer MEDICAID, MEDICARE ==
[~2021-11-08] VITALS: Ht 167.6 cm; Wt 109.8 kg
[~2021-11-08 00:56] MED LIST changes: +ACETAMINOPHEN-1 EAC4 PO; +AUGMENTIN 500-1 EACH PO; +DEXAMETHASONE4 MG PO; +DOXYCYCLINE HY100 MG PO; +PROMETHAZINE-C473 ML PO; +VENTOLIN HFA18 GM INH; +tessalon perles PO
[2021-11-08] MEDS ORDERED: ALBUTEROL/IPRATROPIUM 3 ML NEB NEB ONE ×2 (01:15→01:45)
[2021-11-08] MEDS ORDERED: DEXAMETHASONE SOD PHOS 10 MG/1 ML VIAL IV ONE (01:15)
[2021-11-08 01:18] LABS: BASOPHILS # (AUTO) 0.1 (0.0-0.1); BASOPHILS % 0.4 % (0.0-1.0); EOSINOPHILS # (AUTO) 0.3 (0.0-0.4); EOSINOPHILS % 1.2 % (0.0-6.0); HEMOGLOBIN 15.3 g/dL (14.0-18.0); LYMPHOCYTES # (AUTO) 5.7 (1.0-3.2); LYMPHOCYTES % 27.1 % (18.0-39.1); MEAN CORPUSCULAR HEMOGLOBIN 31.2 pg (28-32); MEAN CORPUSCULAR VOLUME 91.6 fL (81-99); MONOCYTES % 4.5 % (4.4-11.3); NEUTROPHILS # (AUTO) 13.9 (2.1-6.9); NEUTROPHILS % 65.9 % (38.7-80.0); PLATELET COUNT 382 x10e3/uL (140-360); RED BLOOD COUNT 4.91 x10e6/uL (4.3-5.7); RED CELL DISTRIBUTION WIDTH 12.4 % (11.7-14.4)
[2021-11-08] MEDS ORDERED: LACTATED RINGER'S 1,000 ML INJ ONE ×2 (01:30→04:45)
[2021-11-08 01:35] LABS: ALANINE AMINOTRANSFERASE 49 IU/L (0-55); ALBUMIN 3.4 g/dL (3.5-5.0); ALBUMIN/GLOBULIN RATIO 0.6 (0.8-2.0); ALKALINE PHOSPHATASE 93 IU/L (40-150); BLOOD UREA NITROGEN 22 mg/dL (7-26); BUN/CREATININE RATIO 21 (6-25); CALCIUM 8.6 mg/dL (8.4-10.2); CARBON DIOXIDE 15 mmol/L (22-29); CHLORIDE 100 mmol/L (98-107); CREATININE, SERUM 1.04 mg/dL (0.72-1.25); GLUCOSE 166 mg/dL (74-118); SODIUM 136 mmol/L (136-145)
[2021-11-08 01:37] LABS: B-TYPE NATRIURETIC PEPTIDE2 < 12.0 pg/mL (0-100)
[2021-11-08] MEDS ORDERED: ALBUTEROL/IPRATROPIUM 3 ML NEB ONE (01:52)
[2021-11-08] MEDS ORDERED: IOPAMIDOL 370 MG/ML 100 ML INFUS..BTL INJ ONE (02:04)
[2021-11-08] MEDS ORDERED: ASPIRIN 325 MG TAB PO ONE (02:45)
[2021-11-08] MEDS ORDERED: ENOXAPARIN SODIUM INJ 100 MG/ML SYR SC STA (03:14)
[2021-11-08] MEDS ORDERED: Vancomycin IV 1 GM in SODIUM CHLORIDE 0.9% 250ML 250 ML IV STA (03:27)
[2021-11-08] MEDS ORDERED: PIPERACILLIN/TAZOBACTAM 4.5 GM in SODIUM CHLORIDE 0.9% 100 ML IV STA (03:27)
[2021-11-08] MEDS ORDERED: ENOXAPARIN SODIUM INJ 100 MG/ML SYR SC ONE (03:30)
[2021-11-08 03:43] LABS: ABG HCO3 25 mmol/L (22-26); ABG PCO2 36 mmHg (35-45); ABG PH 7.44 (7.35-7.45); ABG PO2 93 mmHg (80-105); ABG TCO2 26
[2021-11-08 06:08] LABS: CLARITY,URINE CLEAR (CLEAR); COLOR,URINE YELLOW (YELLOW); KETONES,URINE NEGATIVE (NEGATIVE); LEUKOCYTE ESTERASE ,URINE NEGATIVE (NEGATIVE); NITRITE,URINE NEGATIVE (NEGATIVE); PROTEIN,URINE DIPSTICK NEGATIVE (NEGATIVE)
[2021-11-08 06:09] LABS: AMPHETAMINES SCREEN,URINE NEGATIVE (NEGATIVE); BACTERIA,URINE FEW /HPF; BENZODIAZEPINES SCREEN,URINE NEGATIVE (NEGATIVE); EPITHELIAL CELLS,URINE FEW /LPF; PHENCYCLIDINE SCREEN,URINE NEGATIVE (NEGATIVE); RBC,URINE 0-5 /HPF (0-5); URINE UROBILINOGEN 0.2 mg/dL (0.2 - 1); WBC,URINE (MAN) 0-5 /HPF (0-5)
[2021-11-08 07:21] LABS: CREATINE KINASE 76 IU/L (30-200)
[2021-11-08] MEDS ORDERED: ONDANSETRON HCL INJ 2MG/ML 2ML 2 MG/ML VIAL IV STA (07:48)
[2021-11-08] MEDS ORDERED: Morphine 4mg INJECTION 4 MG/ML INJ IV ONE (08:00)
[2021-11-08 12:27] VITALS: BP 118/69
== END 2021-11-08 12:30 | disposition other institution (70) ==
LOC: ER 01:00
DX: R06.00 Dyspnea, unspecified (principal); I21.4 Non-ST elevation (NSTEMI) myocardial infarction; R91.8 Other nonspecific abnormal finding of lung field; J98.4 Other disorders of lung; K86.9 Disease of pancreas, unspecified; K43.2 Incisional hernia without obstruction or gangrene; Z20.822 Contact with and (suspected) exposure to COVID-19
CPT/HCPCS: 36415; 36600; 71260; 74177; 80053; 80307; 81001; 82550; 82553; 82805; 83605; 83880; 84484; 85025; 87040; 93005; 94640; 94799; 99284; J1100; J1650; J2270; J2405; J2543; J3370; J7050 ×2; J7121; Q9967; U0002

== ENCOUNTER 2021-12-11 22:44 | Emergency (ER) | payer MEDICAID, MEDICARE ==
[~2021-12-11] VITALS: Ht 167.6 cm; Wt 109.8 kg
[2021-12-11] MEDS ORDERED: SODIUM CHLORIDE 0.9% 1000ML 1,000 ML IV ONE (23:15)
[2021-12-11 23:30] LABS: BASOPHILS # (AUTO) 0.1 (0.0-0.1); BASOPHILS % 0.5 % (0.0-1.0); EOSINOPHILS % 0.1 % (0.0-6.0); HEMATOCRIT 38.6 % (38.2-49.6); HEMOGLOBIN 12.7 g/dL (14.0-18.0); LYMPHOCYTES # (AUTO) 2.3 (1.0-3.2); MEAN CORPUSCULAR HEMOGLOBIN 29.4 pg (28-32); MEAN CORPUSCULAR HGB CONC 32.9 g/dL (31-35); MEAN CORPUSCULAR VOLUME 89.4 fL (81-99); MONOCYTES # (AUTO) 0.2 (0.2-0.8); MONOCYTES % 0.8 % (4.4-11.3); NEUTROPHILS # (AUTO) 23.8 (2.1-6.9); NEUTROPHILS % 82.8 % (38.7-80.0); PLATELET COUNT 249 x10e3/uL (140-360); RED BLOOD COUNT 4.32 x10e6/uL (4.3-5.7); RED CELL DISTRIBUTION WIDTH 12.8 % (11.7-14.4)
[2021-12-11 23:40] LABS: INR 0.87; PROTHROMBIN TIME 12.7 seconds (11.9-14.5)
[2021-12-11 23:48] LABS: ALANINE AMINOTRANSFERASE 98 IU/L (0-55); ALBUMIN 4.4 g/dL (3.5-5.0); ALBUMIN/GLOBULIN RATIO 1.3 (0.8-2.0); ALKALINE PHOSPHATASE 81 IU/L (40-150); ANION GAP 18.2 mmol/L (8-16); BLOOD UREA NITROGEN 29 mg/dL (7-26); BUN/CREATININE RATIO 37 (6-25); CALCIUM 9.1 mg/dL (8.4-10.2); CARBON DIOXIDE 22 mmol/L (22-29); CHLORIDE 103 mmol/L (98-107); CREATINE KINASE 33 IU/L (30-200); CREATININE, SERUM 0.79 mg/dL (0.72-1.25); GLUCOSE 183 mg/dL (74-118); POTASSIUM 4.2 mmol/L (3.5-5.1); SODIUM 139 mmol/L (136-145)
[2021-12-12] MEDS ORDERED: PIPERACILLIN/TAZOBACTAM 3.375 GM VIAL ONE (00:02)
[2021-12-12 00:30] LABS: BACTERIA,URINE FEW /HPF; CLARITY,URINE CLEAR (CLEAR); COLOR,URINE YELLOW (YELLOW); EPITHELIAL CELLS,URINE RARE /LPF; KETONES,URINE NEGATIVE (NEGATIVE); LEUKOCYTE ESTERASE ,URINE NEGATIVE (NEGATIVE); NITRITE,URINE NEGATIVE (NEGATIVE); PROTEIN,URINE DIPSTICK NEGATIVE (NEGATIVE); RBC,URINE 0-5 /HPF (0-5); URINE UROBILINOGEN 0.2 mg/dL (0.2 - 1); WBC,URINE (MAN) 0-5 /HPF (0-5)
[2021-12-12] MEDS ORDERED: KETOROLAC TROMETHAMINE 30 MG/ML VIAL IV STA (01:55)
[2021-12-12] MEDS ORDERED: SODIUM CHLORIDE 0.9% 1000ML 1,000 ML IV SCH (03:45)
[2021-12-12] MEDS ORDERED: SODIUM CHLORIDE 0.9% 1000ML 1,000 ML ONE (03:59)
[2021-12-12] MEDS ORDERED: FENTANYL CITRATE/PF 100MCG/2 ML INJ IV ONE ×2 (04:15→05:45)
[2021-12-12] MEDS ORDERED: FENTANYL CITRATE/PF 100MCG/2 ML INJ ONE (04:18)
[2021-12-12 05:24] VITALS: BP 102/53
[2021-12-12] MEDS ORDERED: IOPAMIDOL 370 MG/ML 100 ML INFUS..BTL INJ ONE (06:20)
== END 2021-12-12 05:50 | disposition other institution (70) ==
LOC: ER 22:57
DX: J93.9 Pneumothorax, unspecified (principal); R91.8 Other nonspecific abnormal finding of lung field; D72.829 Elevated white blood cell count, unspecified; Z85.831 Personal history of malignant neoplasm of soft tissue; Z79.899 Other long term (current) drug therapy; Z20.822 Contact with and (suspected) exposure to COVID-19
CPT/HCPCS: 36415; 71260; 80053; 81001; 82550; 82553; 83605; 84484; 85025; 85610; 85730; 87040; 93005; 99284; C9113; J1885; J2543; J3010; J7030 ×2; Q9967; U0002

== ENCOUNTER 2022-01-14 15:15 | Emergency (ER) | payer MEDICAID, MEDICARE ==
[~2022-01-14] VITALS: Ht 167.6 cm; Wt 109.8 kg
[2022-01-14] MEDS ORDERED: KETOROLAC TROMETHAMINE 30 MG/ML VIAL IV STA (16:22)
[2022-01-14 16:57] LABS: BASOPHILS # (AUTO) 0.1 (0.0-0.1); BASOPHILS % 0.4 % (0.0-1.0); EOSINOPHILS # (AUTO) 0.1 (0.0-0.4); EOSINOPHILS % 0.7 % (0.0-6.0); HEMATOCRIT 44.5 % (38.2-49.6); HEMOGLOBIN 14.6 g/dL (14.0-18.0); LYMPHOCYTES # (AUTO) 2.4 (1.0-3.2); LYMPHOCYTES % 19.3 % (18.0-39.1); MEAN CORPUSCULAR HEMOGLOBIN 29.7 pg (28-32); MEAN CORPUSCULAR HGB CONC 32.8 g/dL (31-35); MEAN CORPUSCULAR VOLUME 90.6 fL (81-99); MONOCYTES # (AUTO) 0.8 (0.2-0.8); MONOCYTES % 6.8 % (4.4-11.3); NEUTROPHILS # (AUTO) 8.8 (2.1-6.9); NEUTROPHILS % 72.5 % (38.7-80.0); PLATELET COUNT 334 x10e3/uL (140-360); RED BLOOD COUNT 4.91 x10e6/uL (4.3-5.7); RED CELL DISTRIBUTION WIDTH 13.7 % (11.7-14.4)
[2022-01-14] MEDS: FENTANYL CITRATE/PF 100MCG/2 ML INJ IV PRN ×2 (17:00→18:57)
[2022-01-14 17:11] LABS: ALBUMIN 4.3 g/dL (3.5-5.0); ALBUMIN/GLOBULIN RATIO 1.2 (0.8-2.0); ANION GAP 19.9 mmol/L (8-16); CALCIUM 9.5 mg/dL (8.4-10.2); CREATININE, SERUM 0.75 mg/dL (0.72-1.25); POTASSIUM 3.9 mmol/L (3.5-5.1)
[2022-01-14] MEDS ORDERED: IOPAMIDOL 370 MG/ML 100 ML INFUS..BTL INJ ONE ×2 (17:35→18:58)
[2022-01-14 17:37] LABS: PHENCYCLIDINE SCREEN,URINE NEGATIVE (NEGATIVE)
[2022-01-14 17:38] LABS: AMPHETAMINES SCREEN,URINE NEGATIVE (NEGATIVE); BENZODIAZEPINES SCREEN,URINE NEGATIVE (NEGATIVE)
[2022-01-14 18:19] LABS: LIPASE 66 U/L (8-78)
[2022-01-14] MEDS ORDERED: SODIUM CHLORIDE 0.9% 100 ML ONE (18:58)
[2022-01-14] MEDS ORDERED: ONDANSETRON HCL INJ 2MG/ML 2ML 2 MG/ML VIAL IV STA (19:10)
[2022-01-14] MEDS ORDERED: Morphine 4mg INJECTION 4 MG/ML INJ IV STA (19:10)
[2022-01-14 19:50] VITALS: BP 130/75
== END 2022-01-14 19:57 | disposition home or self-care (01) ==
LOC: ER 15:18
DX: R07.89 Other chest pain (principal); R10.9 Unspecified abdominal pain; C41.9 Malignant neoplasm of bone and articular cartilage, unspecified; K86.9 Disease of pancreas, unspecified; K57.90 Diverticulosis of intestine, part unspecified, without perforation or abscess without bleeding; R16.0 Hepatomegaly, not elsewhere classified; R94.31 Abnormal electrocardiogram [ECG] [EKG]
CPT/HCPCS: 36415; 71260; 74177; 80053; 80307; 83690; 84484; 85025; 93005; 99284; J1885; J2270; J2405; J3010; J7050; Q9967

== ENCOUNTER 2022-03-11 07:57 | Emergency (ER) | payer MEDICARE ==
[~2022-03-11] VITALS: Ht 167.6 cm; Wt 109.8 kg
[2022-03-11] MEDS ORDERED: KETOROLAC TROMETHAMINE 30 MG/ML VIAL IV STA (08:10)
[2022-03-11 08:38] LABS: BASOPHILS # (AUTO) 0.1 (0.0-0.1); BASOPHILS % 0.5 % (0.0-1.0); EOSINOPHILS # (AUTO) 0.1 (0.0-0.4); EOSINOPHILS % 0.9 % (0.0-6.0); HEMATOCRIT 39.7 % (38.2-49.6); HEMOGLOBIN 12.5 g/dL (14.0-18.0); LYMPHOCYTES # (AUTO) 1.7 (1.0-3.2); LYMPHOCYTES % 17.8 % (18.0-39.1); MEAN CORPUSCULAR HEMOGLOBIN 29.8 pg (28-32); MEAN CORPUSCULAR HGB CONC 31.5 g/dL (31-35); MEAN CORPUSCULAR VOLUME 94.5 fL (81-99); MONOCYTES # (AUTO) 0.9 (0.2-0.8); MONOCYTES % 9.2 % (4.4-11.3); NEUTROPHILS # (AUTO) 6.8 (2.1-6.9); NEUTROPHILS % 71.3 % (38.7-80.0); PLATELET COUNT 277 x10e3/uL (140-360); RED CELL DISTRIBUTION WIDTH 13.7 % (11.7-14.4)
[2022-03-11] MEDS ORDERED: IOPAMIDOL 370 MG/ML 100 ML INFUS..BTL INJ ONE ×2 (08:38→08:39)
[2022-03-11 08:54] LABS: ALANINE AMINOTRANSFERASE 52 IU/L (0-55); ALKALINE PHOSPHATASE 93 IU/L (40-150); ANION GAP 15.9 mmol/L (8-16); BLOOD UREA NITROGEN 13 mg/dL (7-26); BUN/CREATININE RATIO 17 (6-25); CALCIUM 9.3 mg/dL (8.4-10.2); CARBON DIOXIDE 26 mmol/L (22-29); CHLORIDE 102 mmol/L (98-107); CREATINE KINASE 61 IU/L (30-200); CREATININE, SERUM 0.76 mg/dL (0.72-1.25); GLUCOSE 118 mg/dL (74-118); POTASSIUM 3.9 mmol/L (3.5-5.1); SODIUM 140 mmol/L (136-145)
[2022-03-11 09:19] LABS: AMPHETAMINES SCREEN,URINE NEGATIVE (NEGATIVE); BENZODIAZEPINES SCREEN,URINE NEGATIVE (NEGATIVE); PHENCYCLIDINE SCREEN,URINE NEGATIVE (NEGATIVE)
== END 2022-03-11 11:07 | disposition home or self-care (01) ==
LOC: ER 08:01
DX: R07.89 Other chest pain (principal); C25.9 Malignant neoplasm of pancreas, unspecified; E66.9 Obesity, unspecified
CPT/HCPCS: 36415; 71260; 80053; 80307; 82550; 82553; 83690; 83880; 84484; 85025; 85379; 93005; 99284; J1885; Q9967

== ENCOUNTER 2022-05-29 20:49 | Emergency (ER) | payer OTHER ==
[~2022-05-29] VITALS: Ht 167.6 cm; Wt 116.1 kg
[2022-05-29] MEDS ORDERED: KETOROLAC TROMETHAMINE 30 MG/ML VIAL IV STA (21:34)
[2022-05-29] MEDS ORDERED: KETOROLAC TROMETHAMINE 30 MG/ML VIAL ONE (21:50)
[2022-05-29 22:04] LABS: ALBUMIN 4.3 g/dL (3.5-5.0); ANION GAP 17.1 mmol/L (8-16); CALCIUM 9.8 mg/dL (8.4-10.2); CREATININE, SERUM 0.83 mg/dL (0.72-1.25); POTASSIUM 4.1 mmol/L (3.5-5.1)
[2022-05-29 22:09] LABS: BASOPHILS % 0.2 % (0.0-1.0); EOSINOPHILS % 0.1 % (0.0-6.0); HEMATOCRIT 46.6 % (38.2-49.6); HEMOGLOBIN 14.5 g/dL (14.0-18.0); LYMPHOCYTES # (AUTO) 0.8 (1.0-3.2); LYMPHOCYTES % 5.9 % (18.0-39.1); MEAN CORPUSCULAR HGB CONC 31.1 g/dL (31-35); MEAN CORPUSCULAR VOLUME 93.2 fL (81-99); MONOCYTES # (AUTO) 0.9 (0.2-0.8); MONOCYTES % 6.9 % (4.4-11.3); NEUTROPHILS # (AUTO) 11.3 (2.1-6.9); NEUTROPHILS % 86.7 % (38.7-80.0); PLATELET COUNT 254 x10e3/uL (140-360); RED CELL DISTRIBUTION WIDTH 13.1 % (11.7-14.4)
[2022-05-29 22:41] LABS: CLARITY,URINE CLOUDY (CLEAR); COLOR,URINE YELLOW (YELLOW); KETONES,URINE NEGATIVE (NEGATIVE); LEUKOCYTE ESTERASE ,URINE NEGATIVE (NEGATIVE); NITRITE,URINE NEGATIVE (NEGATIVE); PROTEIN,URINE DIPSTICK TRACE (NEGATIVE); URINE UROBILINOGEN 0.2 mg/dL (0.2 - 1)
[2022-05-29 22:43] LABS: AMPHETAMINES SCREEN,URINE NEGATIVE (NEGATIVE); BENZODIAZEPINES SCREEN,URINE NEGATIVE (NEGATIVE); PHENCYCLIDINE SCREEN,URINE NEGATIVE (NEGATIVE)
[2022-05-29 22:48] LABS: BACTERIA,URINE FEW /HPF; EPITHELIAL CELLS,URINE RARE /LPF; RBC,URINE >50 /HPF (0-5); WBC,URINE (MAN) 0-5 /HPF (0-5)
[2022-05-29] MEDS ORDERED: IOPAMIDOL 370 MG/ML 100 ML INFUS..BTL INJ ONE (22:57)
[2022-05-29] MEDS ORDERED: DICYCLOMINE HCL 20 MG/2 ML VIAL IM STA (23:08)
[2022-05-30 00:16] VITALS: BP 123/77
== END 2022-05-30 00:24 | disposition home or self-care (01) ==
LOC: ER 21:03
DX: R50.9 Fever, unspecified (principal); R10.30 Lower abdominal pain, unspecified; K76.0 Fatty (change of) liver, not elsewhere classified; Z20.822 Contact with and (suspected) exposure to COVID-19; Z85.038 Personal history of other malignant neoplasm of large intestine
CPT/HCPCS: 36415; 74177; 80053; 80307; 81001; 82550; 82553; 83605; 83690; 84484; 85025; 87040; 93005; 99284; J0500; J1885; Q9967; U0002

== ENCOUNTER 2023-05-15 22:47 | Emergency (ER) | payer SELFPAY ==
[~2023-05-15] VITALS: Ht 167.6 cm; Wt 116.1 kg
[2023-05-15] MEDS ORDERED: ACETAMINOPHEN 325 MG TAB PO ONE (23:15)
[2023-05-16] MEDS ORDERED: DOXYCYCLINE HY100 MG PO (00:05)
[2023-05-16 00:20] LABS: STREPTOCOCCUS GRP A ANTIGEN NEGATIVE (NEGATIVE)
[2023-05-16] MEDS ORDERED: IBUPROFEN 600 MG TAB PO STA (00:26)
[2023-05-16] MEDS ORDERED: IBUPROFEN 600 MG TAB ONE (00:31)
[2023-05-16 00:33] LABS: RESPIRATORY SYNC. VIRUS NEGATIVE (NEGATIVE)
[2023-05-16 00:37] LABS: INFLUENZAE A&B ANTIGEN (RAPID) POSITIVE FLU A (NEGATIVE)
[2023-05-16] MEDS ORDERED: XOFLUZA80 MG PO (00:40)
[2023-05-16] MEDS ORDERED: DOXYCYCLINE HYCLATE TABLET 100 MG TAB ONE (00:55)
[2023-05-16 01:36] VITALS: O2SAT 98
[2023-05-16] MEDS ORDERED: DOXYCYCLINE HYCLATE TABLET 100 MG TAB PO SCH (09:00)
== END 2023-05-16 01:42 | disposition home or self-care (01) ==
LOC: ER 22:55
DX: R50.9 Fever, unspecified (principal); J18.9 Pneumonia, unspecified organism; J10.1 Influenza due to other identified influenza virus with other respiratory manifestations; R05.9 Cough, unspecified; E66.9 Obesity, unspecified; Z11.52 Encounter for screening for COVID-19; Z85.118 Personal history of other malignant neoplasm of bronchus and lung
CPT/HCPCS: 71046; 83518; 87070; 87400; 87420; 99284; U0002

== ENCOUNTER 2024-01-03 23:32 | Emergency (ER) | payer OTHER ==
[~2024-01-03] VITALS: Ht 167.6 cm; Wt 116.1 kg
[~2024-01-03 23:32] MED LIST changes: +XOFLUZA80 MG PO
[2024-01-04 00:17] LABS: BASOPHILS % 0.4 % (0.0-1.0); EOSINOPHILS # (AUTO) 0.2 (0.0-0.4); EOSINOPHILS % 2.2 % (0.0-6.0); HEMATOCRIT 45.3 % (38.2-49.6); HEMOGLOBIN 15.4 g/dL (14.0-18.0); LYMPHOCYTES # (AUTO) 2.3 (1.0-3.2); LYMPHOCYTES % 30.5 % (18.0-39.1); MEAN CORPUSCULAR HEMOGLOBIN 30.7 pg (28-32); MEAN CORPUSCULAR VOLUME 90.4 fL (81-99); MONOCYTES # (AUTO) 0.7 (0.2-0.8); MONOCYTES % 9.3 % (4.4-11.3); NEUTROPHILS # (AUTO) 4.4 (2.1-6.9); NEUTROPHILS % 57.3 % (38.7-80.0); PLATELET COUNT 205 x10e3/uL (140-360); RED BLOOD COUNT 5.01 x10e6/uL (4.3-5.7); RED CELL DISTRIBUTION WIDTH 11.8 % (11.7-14.4); WHITE BLOOD COUNT 7.67 x10e3/uL (4.8-10.8)
[2024-01-04 00:41] LABS: ALANINE AMINOTRANSFERASE 112 IU/L (0-55); ALBUMIN 4.7 g/dL (3.5-5.0); ALBUMIN/GLOBULIN RATIO 1.8 (0.8-2.0); ALKALINE PHOSPHATASE 75 IU/L (40-150); ANION GAP 14.9 mmol/L (8-16); BILIRUBIN,TOTAL 0.5 mg/dL (0.2-1.2); BLOOD UREA NITROGEN 23 mg/dL (7-26); BUN/CREATININE RATIO 28 (6-25); CALCIUM 9.6 mg/dL (8.4-10.2); CARBON DIOXIDE 23 mmol/L (22-29); CHLORIDE 103 mmol/L (98-107); CREATININE, SERUM 0.83 mg/dL (0.72-1.25); EST GLOMERULAR FILTRATION RATE 113 ML/MIN (>=60); GLUCOSE 102 mg/dL (74-118); POTASSIUM 3.9 mmol/L (3.5-5.1); SODIUM 137 mmol/L (136-145); TOTAL PROTEIN 7.3 g/dL (6.5-8.1)
[2024-01-04 01:16] LABS: TROPONIN I < 0.001 ng/mL (0-0.300)
[2024-01-04] MEDS ORDERED: NEURONTIN300 MG PO (01:22)
[2024-01-04] MEDS: GABAPENTIN 300 MG CAP PO ONE (01:29)
[2024-01-04 01:35] VITALS: PULSE 89; RESP 18; TEMP 98.4; O2SAT 94
== END 2024-01-04 01:30 | disposition home or self-care (01) ==
LOC: ER 23:38
DX: R20.0 Anesthesia of skin (principal); G62.9 Polyneuropathy, unspecified; E66.9 Obesity, unspecified; Z85.118 Personal history of other malignant neoplasm of bronchus and lung; Z79.60 Long term (current) use of unspecified immunomodulators and immunosuppressants; R94.31 Abnormal electrocardiogram [ECG] [EKG]
CPT/HCPCS: 36415; 71045; 80053; 84484; 85025; 93005; 99284

== ENCOUNTER 2024-07-05 01:07 | Inpatient (IN) | payer MEDICARE, OTHER ==
[~2024-07-05] VITALS: Ht 167.6 cm; Wt 109.3 kg
[2024-07-05] VITALS (8 sets, daily range): BP systolic 101–134; BP diastolic 70–93; PULSE 65–87; RESP 16–17; TEMP 97.3–98.1; O2SAT 97–100
[~2024-07-05 01:07] MED LIST changes: +NEURONTIN300 MG PO
[2024-07-05] MEDS ORDERED: IOPAMIDOL 370 MG/ML 100 ML INFUS..BTL INJ ONE (01:43)
[2024-07-05] MEDS: SODIUM CHLORIDE 0.9% 1000ML 1,000 ML IV ONE (03:35)
[2024-07-05] MEDS: ALBUTEROL SULF 0.083% NEB SOLN 3 ML NEB NEB STA (03:43)
[2024-07-05] MEDS: DICYCLOMINE HCL 20 MG/2 ML VIAL IM ONE (03:43)
[2024-07-05] MEDS: D5.45%NS/KCL 20MEQ 1,000 ML IV SCH (04:45)
[2024-07-05] MEDS: Morphine 2mg Syringe 2 MG/ML SYR IV PRN (07:21)
[2024-07-05] MEDS: ONDANSETRON HCL INJ 2MG/ML 2ML 2 MG/ML VIAL IV PRN (07:21)
[2024-07-05] MEDS: FAMOTIDINE 20 MG/2 ML VIAL IV SCH (07:21)
[2024-07-05] MEDS ORDERED: DEXTROSE 50% SYRINGE 50 ML IV PRN (13:15)
[2024-07-05] MEDS ORDERED: LIDOCAINE 4% PATCH TP PRN (13:15)
[2024-07-05] MEDS ORDERED: POTASSIUM CHLORIDE 20 MEQ TAB CR PO PRN (13:15)
[2024-07-05] MEDS ORDERED: ACETAMINOPHEN 325 MG TAB PO PRN (13:15)
[2024-07-05] MEDS ORDERED: BENZONATATE 100 MG CAP PO PRN (13:15)
[2024-07-05] MEDS ORDERED: ALBUTEROL/IPRATROPIUM 3 ML NEB NEB PRN (13:15)
[2024-07-05] MEDS ORDERED: DIPHENHYDRAMINE HCL 25 MG CAP PO PRN (13:15)
[2024-07-05] MEDS ORDERED: HYDRALAZINE HCL 20 MG/ML VIAL IV PRN (13:15)
[2024-07-05] MEDS ORDERED: MELATONIN 5 MG TABLET PO PRN (13:15)
[2024-07-05] MEDS ORDERED: MORPHINE SULFAT30 M2 PO (15:23)
[2024-07-05] MEDS ORDERED: CYCLOBENZAPRINE10 MG PO (15:23)
[2024-07-05] MEDS ORDERED: HYDROCODON-ACE1 EAC9 PO (15:23)
[2024-07-05] MEDS ORDERED: PANTOPRAZOLE SO40 MG PO (15:24)
[2024-07-05] MEDS ORDERED: ATORVASTATIN CA20 MG PO (15:24)
[2024-07-05] MEDS ORDERED: HYDROMORPHONE 1MG/1ML INJ IV PRN ×2 (15:30→23:15)
[2024-07-05] MEDS ORDERED: CYCLOBENZAPRINE HCL 10 MG TAB PO PRN (15:30)
[2024-07-05] MEDS: HYDROMORPHONE 2MG/ML IV PRN ×2 (15:42→23:43)
[2024-07-05] MEDS: DEXTROSE 5%/0.9% SOD CHL 1,000 ML IV SCH (15:44)
[2024-07-05 16:20] LABS: BASOPHILS # (AUTO) 0.1 (0.0-0.1); BASOPHILS % 0.7 % (0.0-1.0); EOSINOPHILS # (AUTO) 0.1 (0.0-0.4); EOSINOPHILS % 1.7 % (0.0-6.0); HEMATOCRIT 46.2 % (38.2-49.6); HEMOGLOBIN 15.6 g/dL (14.0-18.0); LYMPHOCYTES # (AUTO) 1.7 (1.0-3.2); LYMPHOCYTES % 24.6 % (18.0-39.1); MEAN CORPUSCULAR HEMOGLOBIN 30.8 pg (28-32); MEAN CORPUSCULAR HGB CONC 33.8 g/dL (31-35); MEAN CORPUSCULAR VOLUME 91.1 fL (81-99); MONOCYTES # (AUTO) 0.6 (0.2-0.8); MONOCYTES % 8.5 % (4.4-11.3); NEUTROPHILS # (AUTO) 4.5 (2.1-6.9); NEUTROPHILS % 64.4 % (38.7-80.0); PLATELET COUNT 204 x10e3/uL (140-360); RED BLOOD COUNT 5.07 x10e6/uL (4.3-5.7); RED CELL DISTRIBUTION WIDTH 11.8 % (11.7-14.4); WHITE BLOOD COUNT 7.02 x10e3/uL (4.8-10.8)
[2024-07-05] MEDS: PANTOPRAZOLE SOD 40 MG TABEC PO SCH (16:29)
[2024-07-05] MEDS: HYDROCODONE/APAP 5MG-325MG TAB PO PRN (16:29)
[2024-07-05] MEDS: METRONIDAZOLE 500MG/NS 100ML 100 ML IV SCH ×2 (16:30→23:40)
[2024-07-05 16:37] LABS: ANION GAP 13.4 mmol/L (8-16); CALCIUM 9.3 mg/dL (8.4-10.2); CREATININE, SERUM 0.77 mg/dL (0.72-1.25); POTASSIUM 4.4 mmol/L (3.5-5.1)
[2024-07-05] MEDS ORDERED: SEVOFLURANE INHAL SOLN 250 ML PEN BTL ONE (19:14)
[2024-07-05] MEDS: CIPROFLOXACIN 400 MG/D5W 200ML 200 ML IV SCH (21:40)
[2024-07-05] MEDS: MAGNESIUM/ALUMINUM/SIMETHICONE 30 ML UDC PO ONE (23:40)
[2024-07-05] MEDS: LIDOCAINE VISC 2% SOLN 15 ML UDC PO ONE (23:41)
[2024-07-05] MEDS: BELLADONNA ALK/PHENOBARBITAL 5 ML UDC PO ONE (23:41)
[2024-07-06] VITALS (8 sets, daily range): BP systolic 101–135; BP diastolic 67–82; PULSE 68–99; RESP 17–20; TEMP 97–98.2; O2SAT 94–99
[2024-07-06] MEDS ORDERED: PANTOPRAZOLE SOD 40 MG TABEC PO SCH (07:30)
[2024-07-06 09:20] LABS: BASOPHILS % 0.4 % (0.0-1.0); EOSINOPHILS # (AUTO) 0.1 (0.0-0.4); EOSINOPHILS % 1.9 % (0.0-6.0); HEMOGLOBIN 14.6 g/dL (14.0-18.0); LYMPHOCYTES # (AUTO) 1.4 (1.0-3.2); LYMPHOCYTES % 19.3 % (18.0-39.1); MEAN CORPUSCULAR HEMOGLOBIN 30.9 pg (28-32); MEAN CORPUSCULAR HGB CONC 34.8 g/dL (31-35); MONOCYTES # (AUTO) 0.6 (0.2-0.8); NEUTROPHILS # (AUTO) 4.9 (2.1-6.9); NEUTROPHILS % 70.1 % (38.7-80.0); PLATELET COUNT 175 x10e3/uL (140-360); RED BLOOD COUNT 4.72 x10e6/uL (4.3-5.7); RED CELL DISTRIBUTION WIDTH 11.5 % (11.7-14.4); WHITE BLOOD COUNT 7.01 x10e3/uL (4.8-10.8)
[2024-07-06 09:45] LABS: ANION GAP 14.1 mmol/L (8-16); CREATININE, SERUM 0.76 mg/dL (0.72-1.25); POTASSIUM 4.1 mmol/L (3.5-5.1)
[2024-07-06 14:21] LABS: ALBUMIN 4.1 g/dL (3.5-5.0); ALBUMIN/GLOBULIN RATIO 1.1 (0.8-2.0); ANION GAP 15.3 mmol/L (8-16); BILIRUBIN,TOTAL 0.4 mg/dL (0.2-1.2); CALCIUM 9.4 mg/dL (8.4-10.2); CREATININE, SERUM 0.85 mg/dL (0.72-1.25); POTASSIUM 4.3 mmol/L (3.5-5.1); TOTAL PROTEIN 7.7 g/dL (6.5-8.1)
[2024-07-06 15:01] LABS: SALICYLATE < 5.0 mg/dL (0-30)
[2024-07-06] MEDS: HYDROMORPHONE 2MG/ML IV PRN (17:07)
[2024-07-06] MEDS: SIMETHICONE 80 MG CHEW PO PRN (22:20)
[2024-07-07] VITALS (11 sets, daily range): BP systolic 109–127; BP diastolic 63–91; PULSE 66–105; RESP 18–20; TEMP 97.4–98.1; O2SAT 94–100
[2024-07-07] MEDS: MORPHINE SULFATE ER 30 MG TAB PO SCH (09:00)
[2024-07-07] MEDS ORDERED: MIDAZOLAM HCL 2 MG/2 ML VIAL ONE (09:22)
[2024-07-07] MEDS ORDERED: PROPOFOL IV EMULSION 10 MG/ML 20 ML VIAL ONE (09:22)
[2024-07-07] MEDS ORDERED: FENTANYL CITRATE/PF 100MCG/2 ML INJ ONE (09:22)
[2024-07-07] MEDS ORDERED: ONDANSETRON HCL INJ 2MG/ML 2ML 2 MG/ML VIAL ONE (09:23)
[2024-07-07] MEDS ORDERED: DEXAMETHASONE SOD PHOS INJ 4 MG/ML SDV ONE (09:24)
[2024-07-07] MEDS ORDERED: LIDOCAINE HCL 2% LOCAL INJ 5 ML SDV VIAL INJ ONE (09:24)
[2024-07-07] MEDS ORDERED: ACETAMINOPHEN 1000 MG/100 ML 100 ML IV ONE (09:37)
[2024-07-07] MEDS ORDERED: PHENYLEPHRINE HCL 1% 10 MG/ML VIAL ONE (09:54)
[2024-07-07] MEDS: SODIUM CHLORIDE 0.9% 1000ML 1,000 ML IV SCH (11:00)
[2024-07-07] MEDS: MORPHINE SULFATE ER 30 MG TAB PO ONE (14:08)
[2024-07-07] MEDS: ONDANSETRON HCL INJ 2MG/ML 2ML 2 MG/ML VIAL IV PRN (16:08)
[2024-07-07] MEDS: DOCUSATE SODIUM 100 MG CAP PO PRN (17:02)
[2024-07-07] MEDS: ENOXAPARIN SOD INJ 40 MG/0.4 ML SYR SC SCH (17:02)
[2024-07-08] VITALS (9 sets, daily range): BP systolic 99–144; BP diastolic 57–93; PULSE 74–100; RESP 17–20; TEMP 97.9–99.5; O2SAT 97–100
[2024-07-08 05:11] LABS: BASOPHILS % 0.1 % (0.0-1.0); HEMATOCRIT 39.1 % (38.2-49.6); HEMOGLOBIN 13.7 g/dL (14.0-18.0); LYMPHOCYTES # (AUTO) 1.1 (1.0-3.2); LYMPHOCYTES % 10.1 % (18.0-39.1); MEAN CORPUSCULAR HEMOGLOBIN 31.3 pg (28-32); MEAN CORPUSCULAR VOLUME 89.3 fL (81-99); MONOCYTES # (AUTO) 0.5 (0.2-0.8); MONOCYTES % 4.5 % (4.4-11.3); NEUTROPHILS # (AUTO) 9.5 (2.1-6.9); PLATELET COUNT 200 x10e3/uL (140-360); RED BLOOD COUNT 4.38 x10e6/uL (4.3-5.7); RED CELL DISTRIBUTION WIDTH 11.5 % (11.7-14.4); WHITE BLOOD COUNT 11.22 x10e3/uL (4.8-10.8)
[2024-07-08 05:48] LABS: ALBUMIN 4.1 g/dL (3.5-5.0); ALBUMIN/GLOBULIN RATIO 1.4 (0.8-2.0); ANION GAP 16.2 mmol/L (8-16); BILIRUBIN,TOTAL 0.4 mg/dL (0.2-1.2); CALCIUM 9.2 mg/dL (8.4-10.2); CREATININE, SERUM 0.75 mg/dL (0.72-1.25); POTASSIUM 4.2 mmol/L (3.5-5.1)
[2024-07-08 06:48] LABS: HEPATITIS A ANTIBODY IGM (P) Negative; HEPATITIS B CORE IGM (P) Negative; HEPATITIS B SURFACE AG (P) Negative
[2024-07-08 06:49] LABS: HEPATITIS C ANTIBODY Non Reactive
[2024-07-09 04:40] VITALS: BP 113/72; PULSE 66; RESP 18; TEMP 97.7; O2SAT 98
[2024-07-09 05:24] LABS: HEMATOCRIT 40.2 % (38.2-49.6); HEMOGLOBIN 13.9 g/dL (14.0-18.0)
[2024-07-09 05:50] LABS: ANION GAP 12.8 mmol/L (8-16); CALCIUM 9.1 mg/dL (8.4-10.2); CREATININE, SERUM 0.76 mg/dL (0.72-1.25); POTASSIUM 3.8 mmol/L (3.5-5.1)
[2024-07-09 06:45] VITALS: PULSE 84; RESP 18; O2SAT 97
[2024-07-09 09:27] VITALS: BP 121/78; PULSE 76; RESP 18; TEMP 97.7; O2SAT 98
[2024-07-09 10:59] VITALS: BP 121/78; PULSE 76; RESP 18; TEMP 97.7; O2SAT 98
[2024-07-09 12:27] VITALS: BP 124/70; PULSE 80; RESP 18; TEMP 98.3; O2SAT 98
== END 2024-07-09 15:30 | disposition home or self-care (01) | DRG 354 ==
LOC: FSED 01:13 → ERHOLD 04:41 → MED/SURG 14:55
PROVIDERS: ADMIT Internal Medicine; ATTEND Internal Medicine
PROC: 0WUF0JZ Supplement Abdominal Wall with Synthetic Substitute, Open Approach (ICD-10-PCS; principal; 2024-07-07 09:31)
DX: K43.2 Incisional hernia without obstruction or gangrene (principal); C41.9 Malignant neoplasm of bone and articular cartilage, unspecified; C78.89 Secondary malignant neoplasm of other digestive organs; C78.00 Secondary malignant neoplasm of unspecified lung; R16.0 Hepatomegaly, not elsewhere classified; E87.5 Hyperkalemia; R11.0 Nausea; Z79.01 Long term (current) use of anticoagulants; Z79.891 Long term (current) use of opiate analgesic; Z79.85 Long-term (current) use of injectable non-insulin antidiabetic drugs; Z92.21 Personal history of antineoplastic chemotherapy; Z88.0 Allergy status to penicillin; Z88.1 Allergy status to other antibiotic agents
CPT/HCPCS: 36415; 74177; 76705; 80048; 80053; 80307; 80329; 81003; 83690; 85014; 85018; 85025; 94799; 96372; 99284; C1781; J1100; J1171; J1650; J2003; J2250; J2270; J2371; J2405; J2470; J7030; J7042; Q9967

== ENCOUNTER 2024-07-25 10:32 | Observation (INO) | payer MEDICARE ==
[~2024-07-25] VITALS: Ht 167.6 cm; Wt 109.3 kg
[~2024-07-25 10:32] MED LIST changes: +ATORVASTATIN CA20 MG PO; +CYCLOBENZAPRINE10 MG PO; +HYDROCODON-ACE1 EAC9 PO; +MORPHINE SULFAT30 M2 PO; +PANTOPRAZOLE SO40 MG PO
[2024-07-25 10:38] VITALS: TEMP 97.5
[2024-07-25] MEDS ORDERED: ONDANSETRON HCL INJ 2MG/ML 2ML 2 MG/ML VIAL ONE (10:49)
[2024-07-25] MEDS: ONDANSETRON HCL INJ 2MG/ML 2ML 2 MG/ML VIAL IV PRN (10:55)
[2024-07-25] MEDS: SODIUM CHLORIDE 0.9% 1000ML 1,000 ML IV STA (10:55)
[2024-07-25 11:04] LABS: BASOPHILS % 0.2 % (0.0-1.0); EOSINOPHILS # (AUTO) 0.1 (0.0-0.4); EOSINOPHILS % 1.1 % (0.0-6.0); HEMATOCRIT 41.5 % (38.2-49.6); HEMOGLOBIN 13.9 g/dL (14.0-18.0); LYMPHOCYTES # (AUTO) 1.2 (1.0-3.2); LYMPHOCYTES % 10.3 % (18.0-39.1); MEAN CORPUSCULAR HEMOGLOBIN 30.3 pg (28-32); MEAN CORPUSCULAR HGB CONC 33.5 g/dL (31-35); MEAN CORPUSCULAR VOLUME 90.6 fL (81-99); MONOCYTES # (AUTO) 0.7 (0.2-0.8); MONOCYTES % 6.1 % (4.4-11.3); NEUTROPHILS # (AUTO) 9.7 (2.1-6.9); PLATELET COUNT 237 x10e3/uL (140-360); RED BLOOD COUNT 4.58 x10e6/uL (4.3-5.7); RED CELL DISTRIBUTION WIDTH 11.5 % (11.7-14.4)
[2024-07-25] MEDS ORDERED: CLINDAMYCIN 600MG / 50ML 0 ML IV ONE (11:04)
[2024-07-25] MEDS: Morphine 4mg INJECTION 4 MG/ML INJ IV ONE (11:11)
[2024-07-25] MEDS ORDERED: CIPROFLOXACIN 400 MG/D5W 200ML 200 ML IV ONE (11:11)
[2024-07-25 11:22] LABS: ALBUMIN 3.8 g/dL (3.5-5.0); BILIRUBIN,TOTAL 0.5 mg/dL (0.2-1.2); CALCIUM 8.9 mg/dL (8.4-10.2); CREATININE, SERUM 0.75 mg/dL (0.72-1.25); TOTAL PROTEIN 7.7 g/dL (6.5-8.1)
[2024-07-25] MEDS: CIPROFLOXACIN 400 MG/D5W 200ML 200 ML IV SCH (11:22)
[2024-07-25] MEDS ORDERED: IOPAMIDOL 370 MG/ML 100 ML INFUS..BTL INJ ONE (11:41)
[2024-07-25] MEDS ORDERED: Morphine 4mg INJECTION 4 MG/ML INJ IV PRN (13:15)
[2024-07-25] MEDS ORDERED: ONDANSETRON HCL INJ 2MG/ML 2ML 2 MG/ML VIAL IV PRN (13:15)
[2024-07-25] MEDS ORDERED: SODIUM CHLORIDE 0.9% 1000ML 1,000 ML IV SCH ×2 (13:15→13:30)
[2024-07-25] MEDS ORDERED: CLINDAMYCIN 600MG / 50ML 50 ML IV ONE (13:43)
[2024-07-25 13:51] VITALS: PULSE 82; RESP 18; O2SAT 98
[2024-07-25 13:52] VITALS: PULSE 86; RESP 20; O2SAT 100
[2024-07-25] MEDS ORDERED: LEVOFLOXACIN750 MG PO (14:23)
[2024-07-25] MEDS ORDERED: CLEOCIN HCL300 MG PO (14:24)
== END 2024-07-25 16:44 | disposition left against medical advice (07) ==
LOC: ER 10:37 → ERHOLD 13:14 → ER 15:51
PROVIDERS: ADMIT Internal Medicine; ATTEND Internal Medicine
DX: T81.49XA Infection following a procedure, other surgical site, initial encounter (principal); Z53.29 Procedure and treatment not carried out because of patient's decision for other reasons; E66.9 Obesity, unspecified; Z68.38 Body mass index [BMI] 38.0-38.9, adult; C80.1 Malignant (primary) neoplasm, unspecified
CPT/HCPCS: 36415; 74177; 80053; 83605; 83690; 85025; 87040; 94799; 99284; G0378; J0744; J2270; J2405; J7030; Q9967